=== PATIENT | male | born 1975 | race American Indian/Alaskan Native ===

== ENCOUNTER 2021-07-28 03:59 | Emergency (ER) | payer OTHER, MEDICAID ==
[2021-07-28] MEDS ORDERED: Sodium Chloride 0.9% 1,000 ML IV ONE (04:16)
== END 2021-07-28 16:25 | disposition home or self-care (01) ==
LOC: JD.ED 03:59
DX: S06.0X9A Concussion with loss of consciousness of unspecified duration, initial encounter (principal); M54.50 Low back pain, unspecified; V48.5XXA Car driver injured in noncollision transport accident in traffic accident, initial encounter; Y92.410 Unspecified street and highway as the place of occurrence of the external cause
CPT/HCPCS: 36415; 70450; 71260; 72125; 72128; 72131; 73130; 74177; 80053; 80307; 85025; 85610; 99285; J7030